=== PATIENT | male | born 1965 | race Asian ===

== ENCOUNTER 2019-01-09 07:20 | Day surgery (SDC) | payer MEDICAID ==
[2019-01-09] MEDS ORDERED: LIDOCAINE 2% 100 MG/5 ML UJET TP ONE (09:37)
[2019-01-09] MEDS ORDERED: KETOROLAC 30 MG/ML VIAL ONE (10:05)
== END 2019-01-09 10:44 | disposition home or self-care (01) ==
LOC: MDS 07:20 → MMU 07:29 → MDS 10:44
PROVIDERS: ATTEND Internal Medicine Gastroenterology
DX: D12.3 Benign neoplasm of transverse colon (principal); I10 Essential (primary) hypertension; E66.3 Overweight; Z68.25 Body mass index [BMI] 25.0-25.9, adult; Z79.82 Long term (current) use of aspirin; Z79.899 Other long term (current) drug therapy
CPT/HCPCS: 45385; J1885